=== PATIENT | female | born 1980 | race Caucasian/White ===

== ENCOUNTER → 2020-11-18 10:43 | Outpatient (CLI) | payer BC, SELFPAY ==
--- NOTE | ~2020-11-18 | US_ITS ---
EXAMINATION: US pelvic complete DATE: 11/18/2020 11:25 INDICATION: Pelvic pain TECHNIQUE: Multiple transabdominal sonographic images of the pelvis were obtained. COMPARISON: None. FINDINGS: The uterus measures 6.0 x 3.4 x 4.9 cm. An IUD is present in expected position. The endomet rial complex measures 3 mm. The right ovary measures 3.1 x 1.9 x 2.4 cm. The left ovary measures 3.1 x 2.2 x 2.6 cm. There is normal vascular flow in the ovaries. There is no free fluid in the pelvis. IMPRESSION: 1. No sonographic correlate for the patient's symptoms. Reviewed, dictated and finalized at location A. OMER COUNTER ASSOCIATE
== END ==
PROVIDERS: PCP Family Medicine; Visit Provider Nurse Practitioner
DX: R10.2 Pelvic and perineal pain (principal)
CPT/HCPCS: 76856

== ENCOUNTER → 2020-11-20 11:14 | Outpatient (CLI) | payer BC, SELFPAY ==
--- NOTE | ~2020-11-20 | XR_ITS ---
EXAMINATION: XR abdomen/kub 1V INDICATION: Left lower abdominal pain, hematuria TECHNIQUE: Supine views of the abdomen were obtained on 2 radiographs. COMPARISON: None FINDINGS: There are phleboliths of the pelvis. No definite urolithiasis is identified. The bowel gas pattern is normal. There is mild lumbar spondylosis. An IUD is present in the pelvis. The visualized lung bases are clear. IMPRESSION: 1. No definite urolithiasis identified. Reviewed, dictated and finalized at location A. OPENER
== END ==
PROVIDERS: PCP Physician Assistant; Visit Provider Physician Assistant
DX: R10.9 Unspecified abdominal pain (principal)
CPT/HCPCS: 74018

== ENCOUNTER → 2021-08-18 11:28 | Outpatient (CLI) | payer BC, SELFPAY ==
--- NOTE | ~2021-08-18 | XR_ITS ---
EXAMINATION: XR cervical spine 4-5V EXAM DATE: 08/18/2021 12:35 INDICATION: Upper back pain. TECHNIQUE: Cervical spine frontal, lateral, lateral swimmers, submentovertex and open-mouth odontoid projections. There is no prior study for comparison. FINDINGS: There is mild loss of the C5-6 disc height, mild disc disease without loss at C4-5 and C6- 7. Straightening of normal cervical lordosis could be positional or spasm. There is mild cervical fac et arthropathy. The odontoid process is intact. The lateral masses of C1 line up with C2. Prevertebr al soft tissue and pre-dens space are within normal limits. Lung apices are clear. IMPRESSION: Mild cervical spondylosis. Reviewed, dictated and finalized at location B. GE BOAT ENGINEER IMPRESSION: Mild cervical spondylosis.
--- NOTE | ~2021-08-18 | XR_ITS ---
EXAMINATION: XR thoracic spine 3V EXAM DATE: 08/18/2021 12:35 INDICATION: Upper back pain TECHNIQUE: Frontal and lateral projections of the thoracic spine as well as lateral swimmers projecti on of the upper thoracic spine for interpretation. There is no prior study for comparison. FINDINGS: There is mild mid and lower thoracic disc disease. There is mild lower thoracic levoscoli osis. There are no bony erosions identified. There are no acute fractures identified. Paraspinal soft tissue is unremarkable. IMPRESSION: 1. Mild mid and lower thoracic spondylosis. 2. Mild levoscoliosis. Reviewed, dictated and finalized at location B. RANCHER
== END ==
PROVIDERS: PCP Family Medicine; Visit Provider Physician Assistant
DX: M47.892 Other spondylosis, cervical region (principal); M47.894 Other spondylosis, thoracic region
CPT/HCPCS: 72050; 72072

== ENCOUNTER → 2022-12-29 12:41 | Outpatient (CLI) | payer BC, SELFPAY ==
--- NOTE | ~2022-12-29 | MM_ITS ---
EXAMINATION: MM screening sushma BI w singh HISTORY: Screening TECHNIQUE: Craniocaudal and mediolateral oblique 3-D tomosynthesis images were obtained and synthetic 2-D images were generated. CAD analysis was submitted and interpreted. COMPARISON: No prior mammogram is available for comparison at this institution. BREAST PARENCHYMAL COMPOSITION: The breasts are almost entirely fatty. FINDINGS: There is no evidence of suspicious mass, calcification, or architectural distortion to sugg est malignancy in either breast. There has been no suspicious interval change. IMPRESSION: 1. No mammographic evidence of malignancy. 2. Recommend routine screening mammography in one year. BI-RADS Category 1: Negative Reviewed, dictated and finalized at location A.
== END ==
PROVIDERS: PCP Family Medicine; Visit Provider Nurse Practitioner
DX: Z12.31 Encounter for screening mammogram for malignant neoplasm of breast (principal)
CPT/HCPCS: 77063; 77067